=== PATIENT | female | born 1940 | race Caucasian/White ===

== ENCOUNTER 2019-09-16 08:26 | Outpatient (CLI) | payer MEDICARE, OTHER ==
[~2019-09-16 08:26] MED LIST: REGADENOSON 0.4 MG/5 ML SYRINGE ONE
== END 2019-09-16 23:59 | disposition home or self-care (01) ==
LOC: CFH 08:26
PROVIDERS: ATTEND Internal Medicine Cardiovascular Disease
DX: I10 Essential (primary) hypertension (principal); R06.02 Shortness of breath
CPT/HCPCS: 78452; 93017; A9502; J2785

== ENCOUNTER → 2020-09-05 | Outpatient (CLI) | payer MEDICARE, OTHER | END | disposition home or self-care (01) | LOC: CFH 15:21 | PROVIDERS: ATTEND Internal Medicine Cardiovascular Disease | DX: I08.3 Combined rheumatic disorders of mitral, aortic and tricuspid valves (principal) | CPT/HCPCS: 93306 ==

== ENCOUNTER 2020-12-19 21:09 | Inpatient (IN) | payer MEDICARE, OTHER ==
[~2020-12-19] VITALS: Ht 172.7 cm; Wt 82.7 kg
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
[2020-12-19] MEDS ORDERED: SODIUM CHLORIDE FLUSH 10ML SYR IVF ONE (21:30)
[2020-12-19 21:39] LABS: BASOPHILS % (AUTO) 0 % (0-1); EOSINOPHILS % (AUTO) 0 % (1-7); LYMPHOCYTES % (AUTO) 6 % (22-44); MEAN CORPUSCULAR HEMOGLOBIN 34.9 pg (27.0-34.8); MEAN CORPUSCULAR HGB CONC 35.1 g/dL (32.4-35.8); MEAN PLATELET VOLUME 9.1 fL (7.4-10.4); MONOCYTES % (AUTO) 3 % (2-9); NEUTROPHILS % (AUTO) 91 % (42-75); PLATELET COUNT 189 x10^3/uL (130-400)
[2020-12-19 21:44] LABS: ALANINE AMINOTRANSFERASE 29 U/L (12-78); ALBUMIN 3.8 g/dL (3.4-5.0); ANION GAP 7 mmol/L (5-15); CALCIUM 8.9 mg/dL (8.5-10.1); CHLORIDE 99 mmol/L (98-107); CREATININE 0.66 mg/dL (0.55-1.02)
[2020-12-19 21:47] LABS: INTERNATIONAL NORMALIZED RATIO 1.05 (0.93-1.1); PROTHROMBIN TIME 11.2 Seconds (9.6-11.5)
[2020-12-19 21:55] LABS: ALKALINE PHOSPHATASE 66 U/L (45-117); BILIRUBIN,TOTAL 0.6 mg/dL (0.2-1.0); TOTAL PROTEIN 7.9 g/dL (6.4-8.2); TROPONIN I < 0.015 ng/mL (0.000-0.045)
[2020-12-19] MEDS ORDERED: EXEM25TA2 PO (21:58)
[2020-12-19] MEDS ORDERED: AMLO-211 PO (21:58)
[2020-12-19] MEDS ORDERED: LORA-445 PO (21:58)
--- NOTE | 2020-12-19 22:26 | NUR ---
RECEIVED REPORT FROM NICHOLAS GREER TO ASSUME CARE OF PT. PT. IN CT WITH RN AT THIS TIME.
--- NOTE | 2020-12-19 22:30 | NUR ---
REPORT TO LINDSEY PETERSON
--- NOTE | 2020-12-19 22:31 | NUR ---
ANASTASIA RN: TOOK PT TO CT, PT HR DID SLOW TO 35 FOR 25 SECONDS, RETURNED FROM CT, PT TALTATIVE DAUGHTER IN LAW SHINE AT BEDSIDE
[2020-12-19] MEDS ORDERED: MORPHINE SULFATE 4 MG/ML, 1ML ONE ×2 (22:53→23:35)
[2020-12-19] MEDS ORDERED: ONDANSETRON 2MG/ML, 2ML ONE (22:53)
[2020-12-19] MEDS: MORPHINE SULFATE 4 MG/ML, 1ML IVPush PRN ×2 (22:55→23:40)
[2020-12-19] MEDS ORDERED: ONDANSETRON 2MG/ML, 2ML IVPush ONE (23:00)
--- NOTE | 2020-12-19 23:02 | NUR ---
PT. WOULD LIKE FOR DAUGHTER IN LAW SHINE DAVIDSON TO RECEIVE MEDICAL INFORMAIN VIA TELEPHONE. [phone].
--- NOTE | 2020-12-19 23:07 | NUR ---
DR. BURR IN TO DISCUSS ED FINDINGS AND POC WITH PT. AND DAUGHTER IN LAW AT BS. PT. MEDICATED PER MAY FOR 10 ABD PAIN. ALL SAFETY MEASURES OBSERVED. PER PT. SHE WOULD LIKE DAUGHTER IN LAW LISTED PERSON TO NOTIFY; REGISTRAION UPDATED ON THIS.
--- NOTE | 2020-12-19 23:27 | NUR ---
REPORT TO CELLOPHANERNICHOLAS TRACY. COVID PENDING.
[2020-12-19] MEDS ORDERED: SODIUM CHLORIDE FLUSH 10ML SYR IVF PRN (23:30)
[2020-12-19] MEDS ORDERED: CEFOTETAN PMX 1GM/50ML 50 ML IVPB ONE (23:30)
[2020-12-19] MEDS ORDERED: SODIUM CHLORIDE 0.9% 1,000 ML IV ONE (23:30)
--- NOTE | 2020-12-19 23:36 | NUR ---
MED REQUEST SENT TO PHARMACY. PER DR. BURR NO BLOOD CULTURES NEEDED PRIOR TO IV ABX.
[2020-12-19] MEDS ORDERED: FENTANYL PF 100 MCG/2ML ONE (23:44)
--- NOTE | 2020-12-19 23:47 | NUR ---
PT. C/O 01/08 ABD PAIN AGAIN. MEDICATED PER MAY AND DR. BURR BACK IN TO SPEAK WITH PT. NEW ORDER FOR 100MCG FENTANYL IN ADDITION TO MORPHINE. STILL AWAITING ABX FROM PHARMACY.
--- NOTE | 2020-12-19 23:52 | NUR ---
PT. TRANSPORTED TO OR WITH OR TECH AT THIS TIME. DID NOT RECEIVE IV ABX FROM PHARMACY PRIOR TO TRANSPORT.
--- NOTE | 2020-12-19 23:57 | NUR ---
IV ABX RECEIVED AT THIS TIME; CALLED SURGERY. TUBED TO 121.
[2020-12-20] MEDS ORDERED: FENTANYL PF 100 MCG/2ML IVPush ONE
[2020-12-20] MEDS ORDERED: FENTANYL PF 100 MCG/2ML ONE ×3 (00:03→01:55)
[2020-12-20] MEDS ORDERED: PROPOFOL 10 MG/ML, 20ML ONE (01:10)
[2020-12-20] MEDS ORDERED: ROCURONIUM 10MG/ML,5ML ONE (01:10)
[2020-12-20] MEDS ORDERED: SUCCINYLCHOLINE 20 MG/ML, 10ML ONE (01:10)
[2020-12-20] MEDS ORDERED: ONDANSETRON 2MG/ML, 2ML ONE (01:10)
[2020-12-20] MEDS ORDERED: NEOSTIGMINE 1 MG/ML, 10ML ONE (01:10)
[2020-12-20] MEDS ORDERED: GLYCOPYRROLATE 0.2MG/1ML, 5ML ONE (01:10)
[2020-12-20] MEDS ORDERED: CEFAZOLIN 1,000 MG ONE (01:10)
[2020-12-20] MEDS ORDERED: PROMETHAZINE 25 MG SUPP PR PRN (01:30)
[2020-12-20] MEDS ORDERED: LABETALOL 5MG/ML, 20ML IV PRN (01:30)
[2020-12-20] MEDS ORDERED: ONDANSETRON 2MG/ML, 2ML IVPush PRN (01:30)
[2020-12-20] MEDS ORDERED: HYDROmorphone 1 MG/ML, 1ML INJ IVPush PRN (01:30)
[2020-12-20] MEDS ORDERED: LORazepam 2 MG/ML, 1ML IVPush PRN (01:30)
[2020-12-20] MEDS ORDERED: METOPROLOL 1 MG/ML, 5ML IV PRN (01:30)
[2020-12-20] MEDS ORDERED: METHOCARBAMOL 1,000 MG in DEXTROSE 5% 100 ML IV PRN (01:30)
[2020-12-20] MEDS ORDERED: ACETAMINOPHEN 325 MG TABLET PO PRN (01:30)
[2020-12-20] MEDS ORDERED: EPHEDRINE 50 MG/ML, 1ML IVPush PRN (01:30)
[2020-12-20] MEDS ORDERED: hydrALAzine 20 MG/ML, 1ML IV PRN (01:30)
[2020-12-20] MEDS ORDERED: PROMETHAZINE 25 MG/ML, 1ML IVPush PRN (01:30)
[2020-12-20] MEDS ORDERED: OXYcodone 5 MG/5 ML ORAL.SOL UDC PO PRN (01:30)
[2020-12-20] MEDS ORDERED: hydrALAzine 20 MG/ML, 1ML ONE (01:55)
[2020-12-20] MEDS: FENTANYL PF 100 MCG/2ML IV PRN ×2 (02:07→02:17)
[2020-12-20] MEDS ORDERED: LORazepam 2 MG/ML, 1ML ONE (02:24)
[2020-12-20] MEDS ORDERED: LABETALOL 5MG/ML, 20ML IVPush PRN (02:30)
[2020-12-20] MEDS ORDERED: MELATONIN 5 MG TABLET PO PRN (03:13)
[2020-12-20 03:53] VITALS: BP 123/82
[2020-12-20 05:53] LABS: BASOPHILS % (AUTO) 0 % (0-1); EOSINOPHILS % (AUTO) 0 % (1-7); LYMPHOCYTES % (AUTO) 5 % (22-44); MEAN CORPUSCULAR HEMOGLOBIN 34.7 pg (27.0-34.8); MEAN CORPUSCULAR HGB CONC 34.6 g/dL (32.4-35.8); MEAN PLATELET VOLUME 9.2 fL (7.4-10.4); MONOCYTES % (AUTO) 5 % (2-9); NEUTROPHILS % (AUTO) 90 % (42-75); PLATELET COUNT 172 x10^3/uL (130-400); RED BLOOD COUNT 4.31 x10^6/uL (3.82-5.3)
[2020-12-20 06:01] LABS: ANION GAP 5 mmol/L (5-15); CALCIUM 8.4 mg/dL (8.5-10.1); CHLORIDE 101 mmol/L (98-107)
[2020-12-20 06:05] LABS: CREATININE 0.87 mg/dL (0.55-1.02); FREE T4 (FREE THYROXINE) 1.19 ng/dL (0.76-1.46)
[2020-12-20 06:23] VITALS: BP 124/83
[2020-12-20] MEDS: OXYcodone IR 5MG TABLET PO PRN ×4 (07:00→21:39)
[2020-12-20] MEDS: ACETAMINOPHEN 325 MG TABLET PO PRN ×4 (07:00→21:39)
[2020-12-20] MEDS: FAMOTIDINE 20 MG/2 ML IVPush SCH (08:05)
[2020-12-20] MEDS: SODIUM CHLORIDE 0.9% 1,000 ML IV SCH (11:25)
[2020-12-20] MEDS ORDERED: AMLO2.5T5 PO (13:33)
[2020-12-20] MEDS ORDERED: EXEM25TA2 PO (13:33)
[2020-12-20 13:47] VITALS: BP 122/78
[2020-12-20 18:58] VITALS: BP 146/82
[2020-12-20] MEDS ORDERED: OMNIPAQUE 350 MG/ML, 100ML BOTTLE ONE (22:00)
[2020-12-20] MEDS ORDERED: SODIUM CHLORIDE 0.9%, 500ML IVBOLUS ONE (23:00)
[2020-12-21 01:02] VITALS: BP 160/91
[2020-12-21] MEDS: ACETAMINOPHEN 325 MG TABLET PO PRN ×2 (01:57→12:25)
[2020-12-21] MEDS: OXYcodone IR 5MG TABLET PO PRN ×2 (01:57→12:25)
[2020-12-21 05:49] LABS: BASOPHILS % (AUTO) 0 % (0-1); EOSINOPHILS % (AUTO) 0 % (1-7); LYMPHOCYTES % (AUTO) 10 % (22-44); MEAN CORPUSCULAR HEMOGLOBIN 34.3 pg (27.0-34.8); MEAN CORPUSCULAR HGB CONC 33.9 g/dL (32.4-35.8); MEAN PLATELET VOLUME 8.7 fL (7.4-10.4); MONOCYTES % (AUTO) 6 % (2-9); NEUTROPHILS % (AUTO) 83 % (42-75); PLATELET COUNT 145 x10^3/uL (130-400); RED BLOOD COUNT 3.52 x10^6/uL (3.82-5.3); RED CELL DISTRIBUTION WIDTH 14.1 % (9.6-15.2)
[2020-12-21 05:54] LABS: CALCIUM 8.5 mg/dL (8.5-10.1); CHLORIDE 105 mmol/L (98-107)
[2020-12-21 05:56] LABS: CREATININE 0.53 mg/dL (0.55-1.02)
[2020-12-21 06:01] LABS: ANION GAP 3 mmol/L (5-15)
[2020-12-21] MEDS: SODIUM CHLORIDE 0.9% 1,000 ML IV SCH ×2 (06:47→20:53)
[2020-12-21] MEDS: AMLODIPINE 2.5 MG TABLET PO SCH (07:52)
[2020-12-21] MEDS: FAMOTIDINE 20 MG/2 ML IVPush SCH (07:52)
[2020-12-21 08:08] VITALS: BP 139/85
[2020-12-21 14:32] VITALS: BP 155/83
[2020-12-21] MEDS: ONDANSETRON 2MG/ML, 2ML IVPush PRN (19:13)
[2020-12-21 19:28] VITALS: BP 151/92
[2020-12-21] MEDS: LORazepam 0.5MG TABLET PO SCH (20:53)
[2020-12-22 02:50] VITALS: BP 120/72
[2020-12-22] MEDS: HYDROmorphone 2 MG/ML, 1ML IVPush PRN ×3 (03:44→22:28)
[2020-12-22 06:09] LABS: % IRON SATURATION 14 % (20-55); IRON LEVEL 28 mcg/dL (50-170); TOTAL IRON BINDING CAPACITY 194 mcg/dL (250-450)
[2020-12-22 07:46] VITALS: BP 132/79
[2020-12-22] MEDS: FAMOTIDINE 20 MG/2 ML IVPush SCH (08:18)
[2020-12-22] MEDS: SODIUM CHLORIDE 0.9% 1,000 ML IV SCH ×2 (08:18→22:00)
[2020-12-22] MEDS: AMLODIPINE 2.5 MG TABLET PO SCH (08:18)
[2020-12-22 08:39] LABS: ANION GAP 4 mmol/L (5-15); CALCIUM 8.7 mg/dL (8.5-10.1); CHLORIDE 105 mmol/L (98-107); CREATININE 0.44 mg/dL (0.55-1.02)
[2020-12-22 08:45] LABS: BASOPHILS % (AUTO) 0 % (0-1); EOSINOPHILS % (AUTO) 0 % (1-7); LYMPHOCYTES % (AUTO) 7 % (22-44); MEAN CORPUSCULAR HEMOGLOBIN 34.6 pg (27.0-34.8); MEAN CORPUSCULAR HGB CONC 34.2 g/dL (32.4-35.8); MEAN PLATELET VOLUME 9.3 fL (7.4-10.4); MONOCYTES % (AUTO) 6 % (2-9); NEUTROPHILS % (AUTO) 86 % (42-75); PLATELET COUNT 144 x10^3/uL (130-400); RED BLOOD COUNT 3.13 x10^6/uL (3.82-5.3); RED CELL DISTRIBUTION WIDTH 14.3 % (9.6-15.2)
[2020-12-22 14:10] VITALS: BP 137/77
[2020-12-22 19:10] VITALS: BP 149/79
[2020-12-22] MEDS: OXYcodone IR 5MG TABLET PO PRN (20:40)
[2020-12-22] MEDS: LORazepam 0.5MG TABLET PO SCH (21:00)
[2020-12-22] MEDS: ONDANSETRON 2MG/ML, 2ML IVPush PRN (22:28)
[2020-12-23] VITALS (7 sets, daily range): BP systolic 142–174; BP diastolic 80–98
[2020-12-23] MEDS: POLYETHYLENE GLYCOL 17 GM PACKET PO PRN (06:00)
[2020-12-23 07:56] LABS: BASOPHILS % (AUTO) 0 % (0-1); EOSINOPHILS % (AUTO) 1 % (1-7); LYMPHOCYTES % (AUTO) 7 % (22-44); MEAN CORPUSCULAR HEMOGLOBIN 34.8 pg (27.0-34.8); MEAN CORPUSCULAR HGB CONC 34.4 g/dL (32.4-35.8); MEAN PLATELET VOLUME 8.4 fL (7.4-10.4); MONOCYTES % (AUTO) 6 % (2-9); NEUTROPHILS % (AUTO) 85 % (42-75); PLATELET COUNT 149 x10^3/uL (130-400); RED CELL DISTRIBUTION WIDTH 13.8 % (9.6-15.2)
[2020-12-23 08:02] LABS: ALBUMIN 2.5 g/dL (3.4-5.0); ANION GAP 8 mmol/L (5-15); CALCIUM 8.5 mg/dL (8.5-10.1); CHLORIDE 104 mmol/L (98-107)
[2020-12-23 08:06] LABS: ALANINE AMINOTRANSFERASE 21 U/L (12-78); ALKALINE PHOSPHATASE 48 U/L (45-117); BILIRUBIN,TOTAL 0.8 mg/dL (0.2-1.0); CREATININE 0.41 mg/dL (0.55-1.02)
[2020-12-23] MEDS: AMLODIPINE 2.5 MG TABLET PO SCH (08:40)
[2020-12-23] MEDS: FAMOTIDINE 20 MG TABLET PO SCH (08:40)
[2020-12-23] MEDS: EXEMESTANE 25 MG PO SCH (08:40)
[2020-12-23] MEDS: SODIUM CHLORIDE 0.9% 1,000 ML IV SCH (10:26)
[2020-12-23] MEDS: ONDANSETRON 2MG/ML, 2ML IVPush PRN (12:48)
[2020-12-23] MEDS: ACETAMINOPHEN 325 MG TABLET PO PRN (12:48)
[2020-12-23] MEDS: LORazepam 0.5MG TABLET PO SCH (20:48)
[2020-12-24 02:40] VITALS: BP 151/90
[2020-12-24 06:09] LABS: BASOPHILS % (AUTO) 0 % (0-1); EOSINOPHILS % (AUTO) 3 % (1-7); LYMPHOCYTES % (AUTO) 12 % (22-44); MEAN CORPUSCULAR HEMOGLOBIN 34.9 pg (27.0-34.8); MEAN CORPUSCULAR HGB CONC 34.9 g/dL (32.4-35.8); MEAN PLATELET VOLUME 8.6 fL (7.4-10.4); MONOCYTES % (AUTO) 8 % (2-9); NEUTROPHILS % (AUTO) 78 % (42-75); PLATELET COUNT 150 x10^3/uL (130-400); RED BLOOD COUNT 3.06 x10^6/uL (3.82-5.3); RED CELL DISTRIBUTION WIDTH 13.9 % (9.6-15.2)
[2020-12-24 06:15] LABS: ANION GAP 6 mmol/L (5-15); CALCIUM 8.6 mg/dL (8.5-10.1); CHLORIDE 103 mmol/L (98-107)
[2020-12-24] MEDS ORDERED: POTASSIUM CHLORIDE 40 MEQ in SODIUM CHLORIDE 0.9% 500 ML IV ONE (06:30)
[2020-12-24 07:36] VITALS: BP 162/91
[2020-12-24] MEDS: EXEMESTANE 25 MG PO SCH (08:07)
[2020-12-24] MEDS: POLYETHYLENE GLYCOL 17 GM PACKET PO PRN (08:07)
[2020-12-24] MEDS: FAMOTIDINE 20 MG TABLET PO SCH (08:07)
[2020-12-24] MEDS: AMLODIPINE 2.5 MG TABLET PO SCH (08:07)
[2020-12-24] MEDS: OXYcodone IR 5MG TABLET PO PRN ×2 (13:40→20:09)
[2020-12-24 14:15] VITALS: BP 151/82
[2020-12-24 20:05] VITALS: BP 144/91
[2020-12-24] MEDS: LORazepam 0.5MG TABLET PO SCH (20:10)
[2020-12-24 20:36] VITALS: BP 155/89
[2020-12-25 02:10] VITALS: BP 160/94
[2020-12-25 05:17] LABS: BASOPHILS % (AUTO) 1 % (0-1); EOSINOPHILS % (AUTO) 4 % (1-7); LYMPHOCYTES % (AUTO) 19 % (22-44); MEAN CORPUSCULAR HEMOGLOBIN 34.7 pg (27.0-34.8); MEAN CORPUSCULAR HGB CONC 34.9 g/dL (32.4-35.8); MEAN PLATELET VOLUME 8.1 fL (7.4-10.4); MONOCYTES % (AUTO) 10 % (2-9); NEUTROPHILS % (AUTO) 67 % (42-75); PLATELET COUNT 178 x10^3/uL (130-400); RED BLOOD COUNT 3.44 x10^6/uL (3.82-5.3); RED CELL DISTRIBUTION WIDTH 13.7 % (9.6-15.2)
[2020-12-25 05:28] LABS: CHLORIDE 100 mmol/L (98-107)
[2020-12-25 05:33] LABS: ANION GAP 3 mmol/L (5-15); CALCIUM 9.2 mg/dL (8.5-10.1); CREATININE 0.54 mg/dL (0.55-1.02)
[2020-12-25] MEDS: POLYETHYLENE GLYCOL 17 GM PACKET PO PRN (06:47)
[2020-12-25 08:46] VITALS: BP 159/104
[2020-12-25] MEDS: EXEMESTANE 25 MG PO SCH (09:00)
[2020-12-25] MEDS ORDERED: DOCUSATE 100 MG CAPSULE PO SCH (09:00)
[2020-12-25] MEDS: AMLODIPINE 2.5 MG TABLET PO SCH (09:31)
[2020-12-25] MEDS: FAMOTIDINE 20 MG TABLET PO SCH (09:32)
[2020-12-25] MEDS ORDERED: DOCU-181 PO ×2 (09:53)
[2020-12-25] MEDS ORDERED: FAMO20TA7 PO ×2 (09:53)
[2020-12-25] MEDS ORDERED: TRAM50TA2 PO ×3 (10:03→12:45)
[2020-12-25] MEDS: OXYcodone IR 5MG TABLET PO PRN (12:24)
[2020-12-25] MEDS: BISACODYL 10 MG SUPP PR PRN ×2 (12:24→13:42)
[2020-12-25] MEDS ORDERED: DOCU-131 PO (12:45)
[2020-12-25 13:36] VITALS: BP 165/93
== END 2020-12-25 16:11 | disposition home health service (06) | DRG 327 ==
LOC: ED 21:58 → EDIP 23:37 → 4NE 12-20 03:29
PROVIDERS: ADMIT Internal Medicine; ATTEND Family Medicine
PROC: 0DS68ZZ Reposition Stomach, Via Natural or Artificial Opening Endoscopic (ICD-10-PCS; principal; 2020-12-20)
PROC: 0DH60UZ Insertion of Feeding Device into Stomach, Open Approach (ICD-10-PCS; 2020-12-20)
DX: K31.89 Other diseases of stomach and duodenum (principal); K31.1 Adult hypertrophic pyloric stenosis; E87.1 Hypo-osmolality and hyponatremia; G90.09 Other idiopathic peripheral autonomic neuropathy; E83.119 Hemochromatosis, unspecified; D75.89 Other specified diseases of blood and blood-forming organs; E03.9 Hypothyroidism, unspecified; E87.6 Hypokalemia; F41.9 Anxiety disorder, unspecified; I10 Essential (primary) hypertension; I34.1 Nonrheumatic mitral (valve) prolapse; R73.9 Hyperglycemia, unspecified; Z20.822 Contact with and (suspected) exposure to COVID-19; I49.5 Sick sinus syndrome; Z85.3 Personal history of malignant neoplasm of breast; Z90.710 Acquired absence of both cervix and uterus
CPT/HCPCS: 36415; 71045; 74174; 80048; 80053; 82607; 83540; 83550; 83735; 83880; 84100; 84439; 84443; 84484; 85025; 85610; 85730; 87635; 93005; 96374; 96375; 96376; B4087; G0378; J0690; J1170; J2405; J2704; J2710; J3010; J3480; Q9967; J0330; J2060; J2270; J2800; J7030; J7040